=== PATIENT | male | born 1955 | race Caucasian/White ===

== ENCOUNTER 2020-02-05 07:14 | Day surgery (SDC) | payer BC ==
[2020-02-05] MEDS ORDERED: Sodium Chloride 0.9% 10 ML Syringe FLUSH PRN (07:15)
[2020-02-05] MEDS ORDERED: Propofol 200 MG/20 ML SDV IV ONE (07:15)
[2020-02-05] MEDS ORDERED: Lidocaine 1% PF 2 ML SDV INJECT ONE (07:15)
[2020-02-05] MEDS: Lactated Ringers 1,000 ML IV SCH (07:48)
--- NOTE | 2020-02-05 08:28 | PCM.OPNOTE ---
- General Post-Op/Procedure Note Date of Surgery/Procedure: 02/05/20 Operative Procedure(s): c scope with biopsy Findings: transverse colon polyp Pre Op Diagnosis: screening Post-Op Diagnosis: colon polyp Anesthesia Technique: MAC Primary Surgeon: Bassem Concepcion Anesthesia Provider: Don Ji Pathology: colon polyp Complications: None Condition: Good Free Text/Narrative:: see dictation
--- NOTE | 2020-02-05 09:26 | PREOP ---
ADMISSION DATE: 02/05/2020 CHIEF COMPLAINT: Need for colon cancer screening. HISTORY OF PRESENT ILLNESS: This is a gentleman who presents for a followup colonoscopy. He has no complaints. Has a history of colon resection in the past. FAMILY HISTORY: Has a negative family history. SOCIAL HISTORY: He does not smoke and has approximately a can of beer a week. PAST MEDICAL HISTORY: Significant for migraines, chronic sinusitis, history of hypertrophy of the nasal turbinates, and contact dermatitis. He has had a history of a benign neoplasm of the colon. Hypogonadism and arthritis. PAST SURGICAL HISTORY: Significant for left knee arthroscopy, knee arthroscopy x2, right shoulder arthroscopy, carpal tunnel release, sigmoid colectomy, lumbar fusion, hernia repair of the umbilicus, laminectomy of L3-L4, and a node biopsy. MEDICATIONS: At the time of admission included: 1. Krill oil on a p.r.n. basis. 2. Docusate sodium tablets on a p.r.n. basis. 3. ocuvite 1 times per day. 4. Zyrtec 10 mg every night at bedtime. 5. He takes calcium and vitamin D. 6. FiberCon. ALLERGIES: Has an allergy to Augmentin. REVIEW OF SYSTEMS: HEENT: Negative. PULMONARY: Negative. CARDIAC: Negative. ABDOMEN: Negative. NEUROLOGIC: Negative. The only positive finding was the low back pain. PHYSICAL EXAMINATION: VITAL SIGNS: Stable. He is afebrile. GENERAL: This is a well-developed and well-nourished white male, appearing in no acute distress. HEENT: Grossly within normal limits. LUNGS: Clear to auscultation. HEART: Had a regular rate and rhythm. ABDOMEN: Soft and nontender. ASSESSMENT AND PLAN: The patient is due for a colon cancer screening. Procedure and risks were explained to the patient to include bleeding, infection, perforation, and allergic reaction to the medication. The patient expresses understanding and he asked us to proceed. /[id number] /PREETHIL ANNEMARIED
--- NOTE | 2020-02-05 13:58 | OR ---
DATE OF OPERATION: 02/05/2020 SURGEON: Bassem Concepcion MD PROCEDURE PERFORMED: Colonoscopy with cold forceps biopsy. PREOPERATIVE DIAGNOSIS: Need for colon cancer screening. POSTOPERATIVE DIAGNOSIS: Transverse colon polyp. INDICATIONS FOR PROCEDURE: This is a 64-year-old white male who has a history of a colon resection. He was offered and accepted a colonoscopy, as he is due for a screening exam. DESCRIPTION OF OPERATION: After an excellent IV sedation was administered, digital rectal exam was performed. No marked abnormality was noted. Flexible colonoscope was inserted and advanced to the cecum. The prep was excellent. The following findings were noted. Ascending colon, unremarkable. Transverse colon, distal transverse colon small 3 mm polyp, biopsied with cold biopsy forceps, and sent for permanent. Descending colon, unremarkable. Sigmoid appears to be surgically absent. Rectum and anus, unremarkable. The patient tolerated the procedure well, was taken to recovery. Results will be sent to the patient by letter. /[id number] KIM/NORA
== END 2020-02-05 09:20 | disposition home or self-care (01) ==
LOC: FB.SDS 07:14
PROVIDERS: ATTEND Surgery
DX: Z12.11 Encounter for screening for malignant neoplasm of colon (principal); K63.5 Polyp of colon; Z88.1 Allergy status to other antibiotic agents; Z98.890 Other specified postprocedural states
CPT/HCPCS: 88305; J2001; J2704; J7120

== ENCOUNTER 2022-01-23 12:59 | Observation (INO) | payer MEDICARE ==
[2022-01-23] MEDS: Doxycycline 100 MG in Sodium Chloride 0.9% 100 ML IV SCH (15:42)
[2022-01-23] MEDS: Losartan 25 MG Tab *PTOM PO SCH (21:33)
[2022-01-24] MEDS: Doxycycline 100 MG in Sodium Chloride 0.9% 100 ML IV SCH ×2 (02:57→15:07)
[2022-01-24] MEDS: Sodium Chloride 0.9% 10 ML Syringe FLUSH PRN ×3 (02:58→15:07)
[2022-01-24] MEDS: Acetaminophen 325 MG Tab PO PRN ×2 (02:59→15:14)
[2022-01-24] MEDS: Losartan 25 MG Tab *PTOM PO SCH (21:19)
[2022-01-25] MEDS: Sodium Chloride 0.9% 10 ML Syringe FLUSH PRN ×2 (03:15→04:16)
[2022-01-25] MEDS: Doxycycline 100 MG in Sodium Chloride 0.9% 100 ML IV SCH ×2 (03:16→15:23)
[2022-01-25] MEDS: Losartan 25 MG Tab *PTOM PO SCH (21:58)
[2022-01-26] MEDS: Sodium Chloride 0.9% 10 ML Syringe FLUSH PRN (03:24)
[2022-01-26] MEDS: Doxycycline 100 MG in Sodium Chloride 0.9% 100 ML IV SCH (03:25)
[2022-01-26] MEDS ORDERED: Doxycycline 100 MG Tab PO SCH (10:00)
[2022-01-26] MEDS ORDERED: Levofloxacin 500 MG Tab PO SCH (12:45)
== END 2022-01-26 13:48 | disposition home or self-care (01) ==
LOC: FB.MS 12:59
PROVIDERS: ADMIT Family Medicine; ATTEND Family Medicine
DX: L03.116 Cellulitis of left lower limb (principal); T69.1XXA Chilblains, initial encounter; N17.9 Acute kidney failure, unspecified; I10 Essential (primary) hypertension; M47.816 Spondylosis without myelopathy or radiculopathy, lumbar region; M51.36 Other intervertebral disc degeneration, lumbar region; M54.41 Lumbago with sciatica, right side; G58.9 Mononeuropathy, unspecified; G89.29 Other chronic pain; E78.00 Pure hypercholesterolemia, unspecified; H54.7 Unspecified visual loss; E66.9 Obesity, unspecified; Z78.9 Other specified health status; Z88.0 Allergy status to penicillin; Z88.1 Allergy status to other antibiotic agents; Z98.1 Arthrodesis status; Z85.820 Personal history of malignant melanoma of skin; Z79.899 Other long term (current) drug therapy
CPT/HCPCS: 36415; 80048; 80053; 85025; 86140; 87040; 87070; 87205; 96365; 96366; 99222; 99232; 99238; A9270-GY; G0378; G0379; J3490